=== PATIENT | male | born 1975 | race Caucasian/White ===

== ENCOUNTER 2022-04-07 16:02 | Emergency (ER) | payer OTHER, SELFPAY ==
[2022-04-07 16:04] VITALS: BP 133/86; PULSE 87; RESP 16; TEMP 36.5; O2SAT 98; BMI 31.8
--- NOTE | 2022-04-07 16:11 | ED.RN ---
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 Kimmy called.
--- NOTE | 2022-04-07 16:29 | EDS_ITS ---
HPI History of Present Illness HPI Narrative: Right shoulder discomfort from lifting a piece of wood at work. Chief Complaint: Upper Extremity Injury Informant: patient Occured/Mechanism Mechanism/Context: Yes injury Onset/Context/Timing Onset: Days Context: Sudden Onset Timing: Continuous Quality of Pain: Sharp and Aching Current Severity: Mild Maximum Severity: Mild Associated Symptoms Associated Symptoms: Negative for Parasthesia, Weakness or Loss of Funtion Narrative Narrative: 46-year-old male who is new best medical history. [id number]. Was at work last he said he lifted a 4 x 6 piece of wood it was kind of stuck in the mud as he started to pull it out of the mud lifted off he felt pain in his right shoulder. Said he does not believe he tore his rotator cuff because he can move his arm. He is right-hand dominant. He has never had any right shoulder injuries or significant surgeries. He said the pain is started to improve this occurred last . He denies any other complaints. Prior similar symptoms: No Recent Illness/Hospitalization: No PFSH PFSH Medical History no medical history no medical history Allergy/AdvReac Type Severity Reaction Status Date / Time No Known Allergies Allergy Verified 04/07/22 16:08 Social History Smoking Status: Never smoker ROS ROS ED ROS Narrative Denies recent illness. Review of Systems ROS Unobtainable: Denies due to encephalopathy Constitutional Constitutional ED: Denies chills or fever(s) Eyes Eyes: Denies blurry vision ENT ENT ED: Denies ear pain Cardiovascular Cardiovascular: Denies chest pain Respiratory/Chest Respiratory/Chest: Denies cough Gastrointestinal Gastrointestinal: Denies abdominal pain Genitourinary Genitourinary ED: Denies dysuria or hematuria Musculoskeletal Musculoskeletal: Denies back pain Integumentary Denies abscess Neurologic Neurologic: Denies headache(s) Psychiatric Psychiatric: Denies anxiety Endocrine Endocrinology: Denies cold intolerance Hematologic/Lymphatic Hematologic/Lymphatic: Denies easy bleeding Allergic/Immunologic Allergic/Immunologic ED: Denies mouth swelling EXAM Physical Exam Narrative Exam Narrative: 46-year-old male no acute distress vital signs stable afebrile. Exam normal except right shoulder anterior aspect of the insertion along the bicipital tendon there is tenderness. No redness or swelling. No effusion. He has full internal and external rotation flexion extension. He can lift his arm over his head proven that his rotator cuff is intact. He flexes the arm the biceps was intact there is no signs of biceps tendon rupture. He has full flexion-exte nsion of the elbow, wrist and hand he has a strong radial pulse. 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 Breast exam is normal. Const Vital Signs: 04/07/22 16:04 Temperature 97.7 F L Temperature Source Temporal Pulse Rate 87 Respiratory Rate 16 Blood Pressure 133/86 H Blood Pressure Mean 101 Pulse Ox 98 Oxygen Delivery Method Room Air Positive well nourished and well developed; Negative for obese, cachectic, contractures or unkempt General Appearance ED: well developed and NAD; Negative for unkempt, cachectic, contractures, cyanotic or diaphoretic Nutritional Appearance: Negative for cachectic or obese HEENT Reports moist mucous membranes normocephalic and atraumatic; Negative for trauma or tenderness Eyes PERRL and EOMs intact bilaterally General Eye ED: Negative for other Neck supple General: Negative for tenderness Lymph Lymphatic: Negative for other Chest Wall inspection of chest normal Chest: Negative for other Resp normal respiratory effort and clear to auscultation bilaterally Effort and Inspection: Negative for pain with movement Auscultation: Negative for rales, rhonchi or wheezes Cardio regular rate, regular rhythm, S1 normal heart sound, S2 normal heart sound and no murmurs Rate: Negative for bradycardia or tachycardic Rhythm: Negative for abnormal rhythm GI non-tender, non-distended and no masses Inspection: Negative for abdominal distention Auscultation: normoactive bowel sounds Palpation: Negative for soft, tender or guarding Bladder / Kidney Exam: other Back/Spine no CVA tenderness General Back: Negative for CVA tenderness Cervical Spine: Negative for cervical spine tenderness Thoracic Spine / Upper Back: Negative for thoracic spinal tenderness Lumbar Spine / Lower Back: Negative for lumbar spinal tenderness Extremity normal to inspection and full ROM Extremity Narrative: Except mild tenderness insertion of bicipital tendon on the right anterior shoulder. Full range of motion. Full flexion extension. No biceps tendon rupture. Normal strength and range of motion of the entire right upper extremity. 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 Normal radial pulse. General Extremety ED: Negative for edema or other findings General Extremity: Negative for edema or other findings Neuro oriented x3, CN's II-XII intact bilaterally, moves all extremities, no focal motor deficits and no sensory deficits noted Sensorium / Orientation: alert, oriented to person, oriented to place and oriented to time Sensory Exam: No sensory level loss detected Motor Exam: strength 5/5 throughout Psych mental status grossly normal Appearance: Negative for unkempt Attitude: No agitated Mood & Affect: Negative for depressed, anxious or tearful Skin General Skin Exam: Negative for petechiae Lesions: no lesions Rashes: no rashes Trauma: no lacerations or abrasions MDM MDM MDM Narrative Medical decision making narrative: 46-year-old male with a right shoulder injury at work. He has normal range of motion. There is no signs of dislocation. Clinically I think it is very unlikely that he has a [place] a fracture. Most likely strained his shoulder possibly his biceps tendon but there is no signs of rupture. X-ray being obtained. Repeat exam unchanged. Patient doing well at 502. He will be discharged home. Ice and elevate. Motrin for pain and inflammation. Increase activity as tolerated. Follow-up if is not improving. Radiography Diagnostic Testing: Right shoulder x-ray, 4 views, interpreted by myself shows no acute abnormality. No fracture. No dislocation. No avulsion injury. I did go over them patient. He understands that this would not show soft tissue injuries such as shoulder strain or sprain or strain of the tendons or ligaments. Discharge Plan Triage Chief Complaint: Upper Extremity Injury ED Provider: Garfield Flower Dx/Rx/DC Orders Clinical Impression: Muscle strain of right shoulder, Encounter related to worker's compensation claim Instructions: ED Shoulder Sprain Primary Care Provider: Care Physician,No Primary Referrals: Corporate,[facility] [place] [Group of Physicians] - 1 Week if not improving Care Physician,No Primary [Primary Care Provider] - Activity Restrictions/Additional Instructions: Ice to your right shoulder. Slowly increase activity as tolerated. No lifting greater than 20 pounds until pain-free. Motrin for pain and inflammation. Follow-up if not improving for further evaluation. Your x-ray today was normal. Disposition Disposition: Home, Self Care
--- NOTE | 2022-04-07 16:35 | RAD_ITS ---
STUDY: X-RAY - RIGHT SHOULDER REASON FOR EXAM: Male, 46 years old. fall, shoulder pain TECHNIQUE: 4 view(s) of the shoulder. COMPARISON: None. FINDINGS: Normal glenohumeral articulation. Normal acromioclavicular joint. Normal acromion. Normal humeral head and visualized proximal humerus. The soft tissue structures are unremarkable. Normal visualized pulmonary apex. RAD/Shoulder min 2 Views IMPRESSION: Normal x-ray examination of the shoulder. Electronically Signed: Bakari Arvizu MD at 17:08 EDT ,
--- NOTE | 2022-04-07 16:47 | CM.ED ---
ED tracker noted that patient has no PCP. SW met with patient. Patient stated that he is unsure how long he will be in the area however, he may need a PCP to follow up with his current medical issue. KEON provided patient with [facility] Healthcare Provider Directory. NO further SW services needed at this time. SW remains available if needs arise. Sherita DILLARD
== END 2022-04-07 17:23 | disposition home or self-care (01) ==
PROVIDERS: Emergency Provider Emergency Medicine; Visit Provider Emergency Medicine
DX: S46.911A Strain of unspecified muscle, fascia and tendon at shoulder and upper arm level, right arm, initial encounter (principal); X50.0XXA Overexertion from strenuous movement or load, initial encounter; Y93.89 Activity, other specified; Y99.0 Civilian activity done for income or pay
CPT/HCPCS: 73030; 99282

== ENCOUNTER → 2022-05-06 | Outpatient (CLI) | payer OTHER, SELFPAY ==
--- NOTE | 2022-05-06 17:34 | MRI_ITS ---
STUDY: MRI RIGHT SHOULDER REASON FOR EXAM: Right shoulder pain extending to elbow, painful bulge at mid humerus for 5 weeks. TECHNIQUE: Standardized fat and water weighted pulse sequences were obtained in all 3 orthogonal planes. COMPARISON: Radiographs 04/07/2022. FINDINGS: There is mild supraspinatus/infraspinatus tendinosis (T2 sagittal images 18, 19) without discrete tendon tear. There is mild subscapularis tendinosis (T2 axial image 17) without discrete tendon tear. Normal teres minor tendon. Normal supraspinatus muscle. Normal infraspinatus muscle. There is a small cyst at the subscapularis musculotendinous junction (proton-density axial image 18) measuring 1.4 cm in mediolateral dimension. Normal teres minor muscle. Normal glenohumeral articulation. There is mild cystic change of the posterior aspect of the greater tuberosity. There is a tear with nonvisualization of the intracapsular long biceps tendon and an empty bicipital groove. There is a tear of the superior labrum (T2 coronal images 11-14). Normal capsulo- ligamentous complex. There is acromioclavicular arthrosis without undersurface osteophytes (T2 sagittal image 12). There is a Type II morphology (curved), with a neutral orientation. There is a trace of subacromial-subdeltoid bursal fluid. Normal visualized coracohumeral and coracoacromial ligaments. Normal deltoid muscle. Normal trapezius muscle. MRI/Upper Ext Joint Only(Routine) IMPRESSION: Mild supraspinatus, infraspinatus and subscapularis tendinosis without demonstrated rotator cuff tear. Tear of the long biceps tendon. Superior labral tear. Acromioclavicular arthrosis. Electronically Signed: Brenden Skinner MD at 19:04 EDT ,
== END | disposition home or self-care (01) ==
PROVIDERS: Visit Provider Physician Assistant Surgical
DX: S46.211A Strain of muscle, fascia and tendon of other parts of biceps, right arm, initial encounter (principal); X58.XXXA Exposure to other specified factors, initial encounter; M75.81 Other shoulder lesions, right shoulder
CPT/HCPCS: 73221